=== PATIENT | female | born 1955 | race Caucasian/White ===

== ENCOUNTER → 2017-01-22 | Outpatient (CLI) | payer OTHER ==
[~2017-01-22] MED LIST: ACCUNEB0.21 MG/ML IH; ADVAIR 1001 DISK W/D; ALBUTEROL MININEB NEB; ALBUTEROL17 GM; ALBUTEROL17 GM INH; ALPRAZOLAM1 MG PO; ANEXSIA 7.5/3251 TA1 PO; APRESOLINE PO; BACTROBAN22 GM TP; BENADRYL25 MG PO; BENTYL10 MG DOB; BENTYL20 MG PO; CIPRO PO; CLARITHROMYCIN500 MG PO; CLARITIN D PO; COMBIVENT U/D3 M2; COMBIVENT U/D3 M3 INH; CRESTOR; DARVOCET-N 1001 TAB PO; DIAZEPAM; DIAZEPAM PO; DICYCLOMINE HCL10 MG PO; DIFLUCAN100 MG PO; DYAZIDE 37.5/251 CAP; DYAZIDE 37.5/251 CAP PO; ELMIRON100 MG PO; FLOVENT HFA12 GM INH; FLUCONAZOLE100 M1 PO; FORADIL12 MCG NEB; GLUCOTROL PO; HUMIBID-LA600 MG DOB; HYDRALAZINE HCL50 MG PO; HYOMAX0.125 MG PO; KCL PO; KEFLEX PO; KLOR-CON PO; LASIX20 MG PO; LEVAQUIN PO; LEVOFLOXACIN500 MG PO; LIPITOR40 MG PO; LOMOTIL TABLET1 TAB PO; LOMOTIL WHITE2.5 MG PO; LOPID600 MG PO; LORTAB 7.5-3251 EACH PO; LOSARTAN POTASS50 MG PO; MACROBID 100 M100 MG PO; MACROBID100 MG PO; MEDROL PO; NABUMETONE; NASONEX17 GM; NICOTINE TRANSD21 MG EXT; OFLOXACIN5 M1 OT; PANTOPRAZOLE SO20 MG PO; PANTOPRAZOLE SO40 MG PO; PEPCID AC20 MG PO; PHENERGAN12.5 MG PO; PHENERGAN25 M1 PO; POTASSIUM CHLO10 ME1 PO; PREDNISONE PO; PREDNISONE10 MG PO; PREDNISONE10 MG/DOSE PO; PRILOSEC; PRILOSEC PO; PROAIR INHALER; PROMETHAZINE HC25 MG PO; PROTONIX PO; PROVENTIL17 GM IH; PYRIDIUM PO; PYRIDIUM100 MG PO; SERTRALINE HCL100 MG PO; SYMBICORT 16010.2 GM INH; SYMBICORT INH; SYMBICORT80 INH; THEO-DUR300 MG PO; URIBEL CAPSULE1 EAC1 PO; VIBRAMYCIN100 M1 DOB; VIBRAMYCIN100 M1 PO; VICODIN PO; VISTARIL PO; WAL-FEX ALLERG180 MG PO; XANAX XR1 MG PO; ZEBUTAL PO; ZITHROMAX PO; ZOLOFT; ZOLOFT PO; ZOLOFT100 MG PO
--- NOTE | ~2017-01-22 | MR104 ---
[facility] A Service of [facility] & [facility] RADIOLOGY TEXT RESULTS PATIENT: LISA TARANGO LOCATION: [facility] : 59 UNIT #: [id number] AGE: [address]: Maria D Wilson SEX: F ORDER DR: [id number] [address] [id number] MR#: [id number] #: [id number] NAME: LISA TARANGO : 1955 SEX: F STUDY DATE/TIME: 01/22/2017 13:07 UNIT: [facility] ROOM: STUDY DESCRIPTION: MR Knee Wo Contrast Rt Attending Physician: Maria D Wilson P.A.-C. Ordering Physician: Maria D Wilson P.A.-C. Primary Care Physician: Carlos Martin M.D. MRI CENTER REPORT This report is preliminary unless electronic signature is present. EXAM MRI of the right knee without contrast HISTORY 61-year-old female complains of increasing right knee pain and swelling. Fell out of bed 2.5 weeks ago. History of osteoarthritis. Concern for meniscal tear. COMPARISON Right knee films 01/11/2017. TECHNIQUE Multiplanar multi-echo imaging of the right knee utilizing a high-field magnet and dedicated protocol. FINDINGS There is increased T2 marrow signal within the distal femur and proximal tibia, most likely representing red marrow hyperplasia and may be related to body habitus, though can be seen with chronic anemias, as well as chronic smoking. Correlate clinically. There is a small knee effusion. No focal marrow edema is identified to suggest bone contusion or occult fracture. In the posterolateral aspect of the knee, there is a sizable multi-loculated cystic-appearing lesion which lies deep to the lateral head of the gastrocnemius muscle and adjacent to the popliteus muscle and tendon. This measures close to 5 cm cephalocaudal dimension and about 3.1 x 2.4 in greatest transverse dimensions. This is most compatible with a multi-loculated ganglion cyst. Some fluid edema is demonstrated along the inferior margin of the lesion, deep to the gastrocnemius muscle, could represent a component of cyst rupture. In the medial compartment, the meniscus appears intact. Diffuse moderate-grade chondromalacia noted along weightbearing aspect of the STS. [facility] A Service of [facility] RADIOLOGY TEXT RESULTS PATIENT: LISA TARANGO LOCATION: [facility] : 59 UNIT #: [id number] AGE: [address]: Maria D Wilson SEX: F ORDER DR: medial femoral condyle. No definite areas of high-grade chondromalacia seen. In the lateral compartment, the meniscus appears intact. Focus of moderate-grade chondromalacia noted in the posterior weightbearing aspect of the lateral femoral condyle measuring up to 1.5 cm. Mild chondromalacia medial and lateral patellar facet. There is also mild chondromalacia deep trochlear groove. Anterior and posterior cruciate ligaments appear intact. The collateral ligaments and extensor mechanism unremarkable. Extraarticular soft tissues unremarkable. IMPRESSION 1. Developing tricompartment osteoarthritis with extensive moderate-grade chondromalacia medial compartment and a small focus of moderate-grade chondromalacia posterior aspect lateral femoral condyle. No definite areas of high-grade chondromalacia identified. 2. No evidence of meniscal tear. 3. Large complex-appearing multi-loculated cystic lesion along the posterolateral aspect of the knee, probably represents a large popliteal cyst or ganglion cyst, and there is evidence to suggest recent cyst rupture. Dictated by... Cecil Emanuel M.D. THIS IS AN ELECTRONICALLY VERIFIED REPORT Cecil Emanuel M.D. at 01/23/2017 9:12 PM BHARGAV/chandler TD: 01/22/2017 22:38 JOB #: [id number] MRI CENTER REPORT Page 1 of 1
== END | disposition home or self-care (01) ==
LOC: SMRI 07:18
DX: M17.12 Unilateral primary osteoarthritis, left knee (principal); M94.262 Chondromalacia, left knee
CPT/HCPCS: 73721